=== PATIENT | female | born 1990 | race Caucasian/White ===

== ENCOUNTER 2016-03-24 18:45 | Emergency (ER) | payer OTHER ==
[2016-03-24 18:50] VITALS: PULSE 61
--- NOTE | 2016-03-24 19:08 | EDPHY ---
H & P Time Seen by Provider: 03/24/16 19:05 HPI/ROS: CHIEF COMPLAINT: Right foot wound HISTORY OF PRESENT ILLNESS: This patient is a 25 year old female who presents to the Emergency Department with a wound on the lateral aspect of her right foot obtained four weeks ago when she lacerated it on a rock. She states that she has been caring for the wound but it has not healed. Upon arrival, she reports bleeding discharge and tenderness at the site of the wound. REVIEW OF SYSTEMS: No numbness, weakness, excessive bleeding, syncopal episode, other injury. Past Medical/Surgical History: Denies. 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 Smoking Status: Never smoked Physical Exam: Alert and oriented x3, no acute distress Right foot: No pain with toe ROM. Skin: Base of fifth toe, 2cm area of erythema with central open wound; no fluctuance. Neuro: Motor and sensory intact Vascular: Capillary refill brisk distally Constitutional: Initial Vital Signs Temperature (C) 36.7 C 03/24/16 18:47 Heart Rate 61 03/24/16 18:47 Respiratory Rate 18 03/24/16 18:47 Blood Pressure 121/47 H 03/24/16 18:47 O2 Sat (%) 100 03/24/16 18:47 O2 Delivery Mode Room Air Allergies/Adverse Reactions: Penicillins Allergy (Verified 10/15/11 21:49) Home Medications: Medication Instructions Recorded Norethindrone [Micronor] 0.35 mg PO 10/15/11 Cephalexin [Keflex (*)] 500 mg PO QID #40 cap 03/24/16 Medical Decision Making ED Course/Re-evaluation: I discussed with the patient the plan to treat the infected wound with Cephalex. She has a history of an allergic reaction to Penicillin as an infant which presented with swollen lips and a rash. Given this, I discussed my recommendation that we proceed with Cephalex. The patient is agreeable to this. She understands return to the ED precautions and will be discharged home in good condition. Departure - Departure Disposition: Home, Routine, Self-Care Clinical Impression: Puncture wound of right foot excluding toes with infection Qualifiers: Encounter type: initial encounter Qualifier Code: (S91.331A) Puncture wound without foreign body, right foot, initial encounter Condition: Good Instructions: Wound Infection (ED), Acute Wound Care (ED) Additional Instructions: 1. Take the full course of Cephalex as prescribed. 2. Wear flip-flops or shoes that leave the wound site open to the air until it is healed fully. 3. Follow-up with your primary care provider in 3-5 days for reevaluation. 4. You should expect your wound infection to improve within 48 hours. If you do not see improvement or if the wound site becomes more swollen, red, or painful, immediately return to the Emergency Department. Referrals: Hina Rockwell [Other] - As per Instructions Prescriptions: Cephalexin [Keflex (*)] 500 mg PO QID #40 cap Report Scribed for: Alexus Gloria Report Scribed by: Pratibha Cortes Date of Report: 03/24/16 Time of Report: 19:08 Physician Review and Approval Statement: 03/24/16 19:08 Portions of this note were transcribed by a medical staff physician. I personally performed a history, physical exam, medical decision making, and confirmed accuracy of information the transcribed note.
[2016-03-24] MEDS ORDERED: CEPHALEXIN 500 MG CAP PO ONE (19:47)
[2016-03-24] MEDS ORDERED: CEPHALEXIN 500MG PREPACK#4 BTL TAKEHOME ONE (20:01)
[2016-03-24 20:06] VITALS: BP 112/65; RESP 16; TEMP 97.9; O2SAT 96
== END 2016-03-24 20:04 | disposition home or self-care (01) ==
DX: S91.331A Puncture wound without foreign body, right foot, initial encounter (principal); W45.8XXA Other foreign body or object entering through skin, initial encounter

== ENCOUNTER 2016-07-09 10:34 | Day surgery (SDC) | payer OTHER ==
[2016-07-09] MEDS ORDERED: BUPIVACAINE/EPI 0.25% 30 ML SDV ONE (10:38)
[2016-07-09] MEDS ORDERED: BUPIVACAINE 0.25% 30 ML SDV ONE (10:38)
[2016-07-09] MEDS ORDERED: BACITRACIN 50,000 UNITS/10 ML SYR IRR ONE (10:38)
[2016-07-09] MEDS ORDERED: POLYMYXIN B SULFATE 500,000 UNIT/10 ML SYR IRR ONE (10:58)
[2016-07-09] MEDS ORDERED: MIDAZOLAM 2 MG/2 ML VIAL ONE (11:35)
[2016-07-09] MEDS ORDERED: fentaNYL 100 MCG/2 ML INJ ONE (11:41)
[2016-07-09] MEDS ORDERED: PROPOFOL/EMULSION 500 MG/50 ML BOTTLE IV ONE (11:42)
[2016-07-09] MEDS ORDERED: LIDOCAINE 2% 5 ML SDV ONE (11:43)
[2016-07-09] MEDS ORDERED: LR 1,000 ML IV ONE (12:00)
[2016-07-09] MEDS ORDERED: ERTAPENEM 1 GM in NS 100 ML IV ONE (12:30)
--- NOTE | 2016-07-09 21:07 | GOP ---
[f rep st] OPERATIVE REPORT DATE OF OPERATION: 07/09/2016 SURGEON: Nnamdi Bryant DPM TENTMAKER: None. ANESTHESIA: Local with MAC. ANESTHESIOLOGIST: Dr. Akers. PREOPERATIVE DIAGNOSIS: 1. Ulceration right foot. 2. Osteomyelitis right 5th metatarsal head. POSTOPERATIVE DIAGNOSIS: 1. Ulceration right foot. 2. Osteomyelitis right 5th metatarsal head. PROCEDURE PERFORMED: 1. Excision ulceration right foot with primary closure. 2. Partial 5th metatarsal head resection right. FINDINGS: SPECIMENS: Soft tissue and bone specimen sent for culture and sensitivity. ESTIMATED BLOOD LOSS: Minimal. DESCRIPTION OF PROCEDURE: The patient presented to [facility] and was cleared for the intended procedure. The patient was taken to the operating room, placed on the table in supine pos ition. IV sedation was started per the anesthesia department. Foot was anesthetized in infiltrativ e nerve block fashion. Foot was prepped, scrubbed, and draped in usual sterile fashion. Following exsanguination by elevation Esmarch bandage, pneumatic ankle tourniquet was inflated to 225 mmHg. A t this time, attention was directed to the lateral aspect of the right 5th metatarsal head, where th e obvious ulceration was identified. At this time, two converging semi-elliptical incisions were ma de longitudinally around the area. The interposing skin tissue was dissected free and removed. It was sent in for culture and sensitivity at this time. Following completion of this, dissection was continued to be carried down deep utilizing sharp and blunt dissection making sure that all neurovas cular structures were identified and retracted at this time. All superficial bleeders were cauteriz ed. The incision was carried down to the level of the joint capsule. At this time, an inverted L c apsulotomy was performed. Capsular tissues were dissected free dorsally and plantarly to allow for adequate exposure to the head of the 1st metatarsal. Minimal erosion on the lateral aspect was iden tified. At this point, there was no purulent drainage in the joint space. Upon resection of the la teral aspect of the 5th metatarsal head, good healthy solid bone was appreciable underneath. The fermin ok specimen was also sent in for culture and sensitivity at this time. Given that no other obvious osteomyelitic changes were visible, it was decided that the area would be flushed with 3 L of steril e saline and antibiotic rinse in a pulse lavage fashion. Upon completion of this, the capsule was c losed over the area with 3-0 Vicryl followed by subcutaneous closure with 5-0 Vicryl and skin closur e with 5-0 nylon. The area was dressed with Betadine-soaked Adaptics, 4x4s, Mark, and Coban. The patient was taken to the recovery room, vital signs stable, vascular supply intact digits 1 through 5 bilaterally after the pneumatic ankle tourniquet and been released for a total tourniquet time of 29 minutes. HEMOSTASIS: PAT at 225 mmHg by 29 minutes. MATERIALS: None. INJECTABLES: 20 cc 9:1 ratio 0.25% Marcaine plain, 0.25% Marcaine with epi preoperatively. COMPLICATIONS: None. /[id number]/MODL
== END 2016-07-09 14:50 | disposition home or self-care (01) ==
LOC: FSGY 10:34
PROVIDERS: ATTEND Podiatrist Primary Podiatric Medicine
PROC: 02HV33Z Insertion of Infusion Device into Superior Vena Cava, Percutaneous Approach (ICD-10-PCS; 2016-07-09)
PROC: 0QBN0ZZ Excision of Right Metatarsal, Open Approach (ICD-10-PCS; principal; 2016-07-09 12:15)
DX: M86.171 Other acute osteomyelitis, right ankle and foot (principal); M21.622 Bunionette of left foot; M21.621 Bunionette of right foot; Z88.0 Allergy status to penicillin; Z88.1 Allergy status to other antibiotic agents; B95.61 Methicillin susceptible Staphylococcus aureus infection as the cause of diseases classified elsewhere
CPT/HCPCS: 28122; 36569; 77001; C1751; J1335; J1642; J2250; J2704; J3010

== ENCOUNTER 2016-07-14 19:42 | Emergency (ER) | payer OTHER ==
[~2016-07-14 19:42] MED LIST: NS 1,000 ML IV ONE
[2016-07-14] MEDS ORDERED: FAMOTIDINE 20 MG/2 ML SDV IVP ONE (19:52)
--- NOTE | 2016-07-14 19:59 | CPEKG ---
Heart Rate: 71 RR Interval: 845 P-R Interval: 132 QRSD Interval: 76 QT Interval: 412 QTC Interval: 448 P Tipton: 30 QRS Tipton: 78 T Wave Tipton: -52 EKG Severity - NORMAL ECG - EKG Impression: SINUS RHYTHM Electronically Signed By: Alexus Gloria 14-Jul-2016 20:56:20
--- NOTE | 2016-07-14 20:03 | EDPHY ---
H & P Smoking Status: Never smoked Time Seen by Provider: 07/14/16 20:03 HPI/ROS: CHIEF COMPLAINT: Allergic reaction HISTORY OF PRESENT ILLNESS: 25-year-old female presents to the emergency department by ambulance with possible allergic reaction. Patient has a history of osteomyelitis in her right foot. She was given her 1st dose of 1 g vancomycin IV by home health. Within about 30 minutes she felt very flushed and became very red and felt nauseous. The home health nurse was there and gave her the patient 1 mg of IV epinephrine and 50 mg of Benadryl IV. The patient now presents to the emergency department for evaluation. She states that she feels a little bit better. She still feels very chilled. She was anxious. She denies nausea vomiting now. Denies pain in her chest. Denies abdominal pain. Denies neck or back pain. She still has chronic pain in her right foot from her osteomyelitis. REVIEW OF SYSTEMS: Constitutional: No fever, no chills. Eyes: No double or blurry vision. ENT: No sore throat. Respiratory: No cough, no shortness of breath. Cardiac: No chest pain. Gastrointestinal: No abdominal pain, vomiting or diarrhea. Genitourinary: No dysuria. Musculoskeletal: No neck or back pain. Skin: No rashes. Neurological: No headache. (Taya Goodwinrina Jayme) Past Medical/Surgical History: Osteomyelitis right foot (Jacque Goodwin M) Social History: Single and lives in [place] (Jacque Goodwin) Physical Exam: General Appearance: Alert, no distress. Blood pressure 84/56, 98% on room air, heart rate 92. She appears anxious. Eyes: Pupils equal and round. Extraocular motions are all intact. ENT: Mouth: Mucous membranes moist. Respiratory: No wheezing, rhonchi, or rales, lungs are clear to auscultation. Cardiovascular: Regular rate and rhythm. Gastrointestinal: Abdomen is soft and nontender, no masses, no rebound or guarding, bowel sounds normal. Neurological: Alert and oriented x 3, cranial nerves II through XII grossly intact Skin: Warm and dry, no rashes. Musculoskeletal: Nontender to palpate along the cervical, thoracic or lumbar spine. Neck is supple. Extremities: Full range of motion and no peripheral edema. Psychiatric: Patient is oriented X 3, there is no agitation. (Jacque Goodwin) Constitutional: Initial Vital Signs Temperature (C) 36.7 C 07/14/16 19:51 Heart Rate 92 07/14/16 19:51 Respiratory Rate 20 07/14/16 19:51 Blood Pressure 84/56 L 07/14/16 19:51 O2 Sat (%) 98 07/14/16 19:51 O2 Delivery Mode Room Air Allergies/Adverse Reactions: amoxicillin Allergy (Verified 07/14/16 19:53) Penicillins Allergy (Verified 10/15/11 21:49) vancomycin Allergy (Verified 07/14/16 19:53) Home Medications: Medication Instructions Recorded Control 07/14/16 Medical Decision Making ED Course/Re-evaluation: An EKG was obtained since the patient received 1 mg of IV epinephrine by her home health nurse and this revealed normal sinus rhythm. 20 mg of Pepcid IV was given to the patient. The patient was observed for over 2 hours in the emergency department. She was feeling much better. She is comfortable being discharged home. I spoke with Dr. Norberto Swenson who was on-call for Infectious Disease who is aware of the patient's reaction to vancomycin. Feels that this is likely a red man's type reaction. He recommended having the patient call their office tomorrow morning to arrange additional IV infusion at the infusion center. She may need to be changed to daptomycin. The patient is aware of this. The case was discussed with Dr. Alexus Gloria, supervising physician, who also evaluated the patient. (Jacque Goodwin) This patient was seen and examined by me. No oral swelling, chest is clear to auscultation and no visible rash. c/w red man syndrome, possibly related to fast IV infusion of vanco. She received 1 mg of IV epinephrine prior to arrival history of the usual epinephrine dosing for allergic reaction. There is no evidence of adrenergic toxicity, with normal heart rate and rhythm as well as normal blood pressure. She usually has low BP, 90/60, similar to BP today. Will observe her in the emergency department. (Alexus Gloria) Differential Diagnosis: Including but not limited to acute allergic reaction, medication reaction, anaphylaxis, anxiety (Jacque Goodwin) - Data Points Medications Given: Discontinued Medications Famotidine (Pepcid) 20 mg IVP EDNOW ONE Stop: 07/14/16 19:53 Last Admin: 07/14/16 20:00 Dose: 20 mg Sodium Chloride (Ns) 1,000 mls @ 0 mls/hr IV ONCE ONE PRN Reason: Wide Open Stop: 07/14/16 19:41 Last Admin: 07/14/16 19:50 Dose: 1,000 mls Departure - Departure Disposition: Home, Routine, Self-Care Clinical Impression: Possible medication reaction Condition: Good Instructions: Antibiotic Medication Allergy (ED) Additional Instructions: Call infectious disease tomorrow to discuss antibiotics for your osteomyelitis. Referrals: Isaías Calderón MD [Medical Doctor] - 1 day without fail (Call tomorrow morning after 9:00 a.m.)
[2016-07-14 21:51] VITALS: BP 90/64; PULSE 90; RESP 18; TEMP 97.5; O2SAT 98
== END 2016-07-14 21:50 | disposition home or self-care (01) ==
LOC: EDUNIT#
DX: T78.40XA Allergy, unspecified, initial encounter (principal)
CPT/HCPCS: 96374

== ENCOUNTER 2017-11-11 11:21 | Emergency (ER) | payer OTHER ==
--- NOTE | 2017-11-11 11:53 | EDPHY ---
HPI/HX/ROS/PE/MDM Narrative: CHIEF COMPLAINT: Headache HPI: This patient is a healthy 27 year old female. She presents with headache and visual disturbances. He symptoms began with rapid onset around 9:30am. She denies any sudden "thunderclap" headache. She was at work and developed blurred vision and floaters in her right eye as well as a worsening headache. She became nauseous and vomited. Arunf this time she also noted numbness and paresthesias in her right arm. This has now resolved. She called her primary care provider's office and staff referred her to the ER for evaluation. The patient denies history of severe headaches. This is her most severe to date. She denies recent head trauma. Denies recent illness or unusual stress. No fever , chest pain, shortness of breath, diarrhea, urinary complaints, or other associated symptoms. REVIEW OF SYSTEMS: A comprehensive 10 system review of systems is otherwise negative aside from elements mentioned in the history of present illness and medical decision making. PMH: History of osteomyelitis in right foot. Orthopedic surgery. SOCIAL HISTORY: . Lives in [place]. 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 PHYSICAL EXAM: General:Patient is alert, in no acute distress. ENT:Eyes are normal to inspection. ENT inspection normal. Neck: Normal inspection. Full range of motion. Respiratory:No respiratory distress. Breath sounds normal bilaterally. Cardiovascular: Regular rate and rhythm. Strong peripheral pulses. Normal cap refill. Abdomen:The abdomen is nontender to palpation. There are no peritoneal signs. There are normal bowel sounds. Back: Normal to inspection. No tenderness to palpation. Skin: Normal color. No rash. Warm and dry. Extremities: Normal appearance. Full range of motion. Neuro: Oriented x3. Normal motor function. Normal sensory function. ED Course: This patient is a 27 year old female who presents with headache and visual disturbance. RUE numbness and paresthesias which developed after headache onset have now resolved. Exam largely unremarkable, no focal neurologic deficits noted. Plan to establish IV, administer migraine cocktail for symptom relief. Plan for CT head. Discussed further possible evaluation including imaging studies, LP. Laboratory studies largely unremarkable. BHCG negative. 13:[address] Ch, radiologist. CT head is negative for acute processes. 13:26 Reassessed patient. She is now completely asymptomatic. Discussed imaging results. I offered further testing and evaluation but the patient declines further studies including CTA or LP. We specifically discussed risks of aneurysm , SAH, vessel dissection and venous thrombosis, and she is aware that we cannot rule out these potentially life-threatening diseases without further testing. Plan to discharge home in good oxidation with referral to neurology. Follow up and return precautions discussed. She is comfortable with this plan. - Data Points Imaging Results: Imaging Impressions Head CT 11/11/17 11:57 Impression: Normal. Results called and discussed with Bubba Nash MD at 11/11/2017 13:22. Imaging: Discussed imaging studies w/ body recall instructor Radiologist Laboratory Results: Laboratory Results 11/11/17 12:23 11/11/17 12:23 11/11/17 11/11/17 11/11/17 12:23 12:23 12:23 WBC 10.70 10^3/uL H 10^3/uL (3.80-9.50) RBC 4.82 10^6/uL 10^6/uL (4.18-5.33) Hgb 15.5 g/dL g/dL (12.6-16.3) Hct 44.6 % % (38.0-47.0) MCV 92.5 fL fL (81.5-99.8) MCH 32.2 pg pg (27.9-34.1) MCHC 34.8 g/dL g/dL (32.4-36.7) RDW 12.0 % % (11.5-15.2) Plt Count 265 10^3/uL 10^3/uL (150-400) MPV 9.1 fL fL (8.7-11.7) Neut % (Auto) 76.5 % H % (39.3-74.2) Lymph % (Auto) 19.7 % % (15.0-45.0) Bartholomew % (Auto) 3.2 % L % (4.5-13.0) Eos % (Auto) 0.1 % L % (0.6-7.6) Baso % (Auto) 0.2 % L % (0.3-1.7) Nucleat RBC Rel Count 0.0 % % (0.0-0.2) Absolute Neuts (auto) 8.19 10^3/uL H 10^3/uL (1.70-6.50) Absolute Lymphs (auto) 2.11 10^3/uL 10^3/uL (1.00-3.00) Absolute Monos (auto) 0.34 10^3/uL 10^3/uL (0.30-0.80) Absolute Eos (auto) 0.01 10^3/uL L 10^3/uL (0.03-0.40) Absolute Basos (auto) 0.02 10^3/uL 10^3/uL (0.02-0.10) Absolute Nucleated RBC 0.00 10^3/uL 10^3/uL (0-0.01) Immature Gran % 0.3 % % (0.0-1.1) Immature Gran # 0.03 10^3/uL 10^3/uL (0.00-0.10) Sodium 141 mEq/L mEq/L (135-145) Potassium 4.0 mEq/L mEq/L (3.3-5.0) Chloride 104 mEq/L mEq/L (97-110) Carbon Dioxide 25 mEq/l mEq/l (22-31) Anion Gap 12 mEq/L mEq/L (8-16) BUN 14 mg/dL mg/dL (7-23) Creatinine 0.8 mg/dL mg/dL (0.6-1.0) Estimated GFR > 60 Glucose 94 mg/dL mg/dL (70-100) Calcium 9.9 mg/dL mg/dL (8.5-10.4) Beta HCG, Qual NEGATIVE Medications Given: Discontinued Medications Diphenhydramine HCl (Benadryl Injection) 25 mg IVP EDNOW ONE Stop: 11/11/17 12:00 Last Admin: 11/11/17 12:25 Dose: 25 mg Sodium Chloride (Ns) 1,000 mls @ 0 mls/hr IV EDNOW ONE; Wide Open PRN Reason: Protocol Stop: 11/11/17 12:00 Last Admin: 11/11/17 12:20 Dose: 1,000 mls Ketorolac Tromethamine (Toradol) 30 mg IVP EDNOW ONE Stop: 11/11/17 12:00 Last Admin: 11/11/17 12:25 Dose: 30 mg Metoclopramide HCl (Reglan Injection) 10 mg IVP EDNOW ONE Stop: 11/11/17 12:00 Last Admin: 11/11/17 12:25 Dose: 10 mg General Initial Vital Signs: Initial Vital Signs Temperature (C) 37 C 11/11/17 11:41 Heart Rate 77 11/11/17 11:41 Respiratory Rate 16 11/11/17 11:41 Blood Pressure 107/60 11/11/17 11:41 O2 Sat (%) 98 11/11/17 11:41 O2 Delivery Mode Room Air Allergies/Adverse Reactions: amoxicillin Allergy (Verified 11/11/17 11:41) Penicillins Allergy (Verified 11/11/17 11:41) vancomycin Allergy (Verified 11/11/17 11:41) Home Medications: Medication Instructions Recorded Control 07/14/16 Departure - Departure Disposition: Home, Routine, Self-Care Clinical Impression: Migraine Condition: Good Instructions: Migraine Headache (ED) Additional Instructions: Follow-up with your primary care physician within 72 hours. Follow up with neurology as discussed. We have referred you to our neurologist avionics integration engineer. Return to the emergency department immediately for recurrence of headache, nausea, vomiting, numbness, weakness, neck pain, fever or other concerns. Use Tylenol and/or ibuprofen as directed for pain relief. Referrals: Ann Marie Gomez MD [Primary Care Provider] - As per Instructions Bhargav Taylor DO [Medical Doctor] - As per Instructions Report Scribed for: Bubba Nash Report Scribed by: Erika Monzon Date of Report: 11/11/17 Time of Report: 11:57 Physician Review and Approval Statement: Portions of this note were transcribed by an ED scribe. I personally performed the history, physical exam, and medical decision making; and confirm the accuracy of the information in the transcribed note.
[2017-11-11] MEDS ORDERED: METOCLOPRAMIDE 10 MG/2 ML VIAL IVP ONE (11:59)
[2017-11-11] MEDS ORDERED: NS 1,000 ML IV ONE (11:59)
[2017-11-11] MEDS ORDERED: KETOROLAC 30 MG/1 ML SDV IVP ONE (11:59)
[2017-11-11 12:34] LABS: PLATELET COUNT 265 10^3/uL (150-400)
[2017-11-11 13:45] VITALS: BP 96/59
== END 2017-11-11 13:45 | disposition home or self-care (01) ==
DX: G43.909 Migraine, unspecified, not intractable, without status migrainosus (principal); E86.9 Volume depletion, unspecified
CPT/HCPCS: 96374; J1200; J1885; J2765